=== PATIENT | female | born 1985 | race Caucasian/White ===

== ENCOUNTER 2017-12-10 10:09 | Day surgery (SDC) | payer OTHER ==
[2017-12-10 11:30] LABS: ADD MAN DIFF? NO
[2017-12-10 11:45] LABS: BASOPHIL # 0.1 10^3/ul (0.0-0.1); BASOPHILS % 0.8 % (0.0-2.0); EOSINOPHILS # 0.1 10^3/ul (0.0-0.5); EOSINOPHILS % 1.1 % (0.0-7.0); HEMATOCRIT 36.9 % (37.0-47.0); HEMOGLOBIN 11.8 g/dl (12.0-16.0); LYMPHOCYTES # 1.7 10^3/ul (0.8-2.9); LYMPHOCYTES % 19.2 % (15.0-51.0); MEAN CORPUSCULAR HEMOGLOBIN 24.4 pg (29.0-33.0); MEAN CORPUSCULAR VOLUME 76.2 fl (82.0-101.0); MEAN PLATELET VOLUME 10.4 fl (7.4-10.4); MONOCYTE # 0.7 10^3/ul (0.3-0.9); MONOCYTES % 7.9 % (0.0-11.0); NEUTROPHIL # 6.4 10^3/ul (1.6-7.5); NEUTROPHILS % 70.6 % (39.0-77.0); PLATELET COUNT 294 10^3/UL (140-415); RED BLOOD COUNT 4.84 10^6/ul (4.20-5.40); RED CELL DISTRIBUTION WIDTH 14.3 % (11.5-14.5)
[2017-12-10] MEDS ORDERED: hydrALAzine 20 MG INJ IV (12:00)
[2017-12-10] MEDS ORDERED: ONDANSETRON 4 MG INJ IV (12:00)
[2017-12-10] MEDS ORDERED: HYDROmorphONE (0.2 MG/ML) 10ML SYG IV (12:00)
[2017-12-10] MEDS ORDERED: MEPERIDINE 25 MG INJ IV (12:00)
[2017-12-10] MEDS ORDERED: LABETALOL HCL 20MG INJ IV (12:00)
[2017-12-10] MEDS ORDERED: PROCHLORPERAZINE 10 MG INJ IV (12:00)
[2017-12-10] MEDS ORDERED: FENTAnyl 50 MCG/ML VIAL IV (12:00)
[2017-12-10] MEDS ORDERED: OXYCODONE/ACETAMINOPHEN (5/325) TAB PO (12:00)
[2017-12-10] MEDS ORDERED: DIPHENHYDRAMINE 50 MG INJ IV (12:00)
[2017-12-10] MEDS ORDERED: PROPOFOL 20 ML ×2 (13:44)
[2017-12-10] MEDS ORDERED: MIDAZOLAM 1 MG/ML 2 ML INJ (13:44)
[2017-12-10] MEDS ORDERED: ONDANSETRON 4 MG INJ (13:44)
[2017-12-10] MEDS ORDERED: METOCLOPRAMIDE 10 MG INJ (13:44)
[2017-12-10] MEDS ORDERED: KETOROLAC 30 MG INJ (13:44)
[2017-12-10] MEDS ORDERED: FENTAnyl 50 MCG/ML VIAL (13:44)
[2017-12-10] MEDS ORDERED: LIDOCAINE 2% (SDV) 5 ML INJ (13:44)
[2017-12-10] MEDS ORDERED: FAMOTIDINE 20 MG INJ (13:44)
[2017-12-10] MEDS ORDERED: PHENYLephrine (100 MCG/ML) 5ML SYG (13:45)
== END 2017-12-10 14:20 | disposition home or self-care (01) ==
LOC: SDS 10:09
DX: N93.9 Abnormal uterine and vaginal bleeding, unspecified (principal); E11.9 Type 2 diabetes mellitus without complications; E78.5 Hyperlipidemia, unspecified; E66.01 Morbid (severe) obesity due to excess calories; Z68.39 Body mass index [BMI] 39.0-39.9, adult
CPT/HCPCS: 58120; 82962; 85025; 88305

== ENCOUNTER 2018-12-09 08:23 | Day surgery (SDC) | payer OTHER ==
[~2018-12-09 08:23] MED LIST: LIDOCAINE 2% (SDV) 5 ML INJ
[2018-12-09] MEDS ORDERED: FENTAnyl 50 MCG/ML VIAL (11:13)
[2018-12-09] MEDS ORDERED: DEXAMETHASONE 4 MG/ML 5 ML INJ (11:38)
[2018-12-09] MEDS ORDERED: PROPOFOL 100 ML (11:38)
[2018-12-09] MEDS ORDERED: ONDANSETRON 4 MG INJ (11:38)
[2018-12-09] MEDS ORDERED: KETOROLAC 30 MG INJ (11:59)
[2018-12-09] MEDS ORDERED: HYDROmorphONE 1 MG/5 ML IV SYRINGE IV ×2 (12:23→12:30)
[2018-12-09] MEDS: HYDROmorphONE 1 MG/5 ML IV SYRINGE IV (12:25)
[2018-12-09] MEDS ORDERED: EPHEDrine SULFATE 50 MG/5 ML SYG IV (12:30)
[2018-12-09] MEDS ORDERED: ALBUTEROL 0.083% (NEB) 2.5 MG/3 ML AMP HHN (12:30)
[2018-12-09] MEDS ORDERED: OXYCODONE/ACETAMINOPHEN (5/325) TAB PO ×2 (12:30)
[2018-12-09] MEDS ORDERED: MEPERIDINE 25 MG INJ IV (12:30)
[2018-12-09] MEDS ORDERED: METOCLOPRAMIDE 10 MG INJ IV (12:30)
[2018-12-09] MEDS ORDERED: hydrALAzine 20 MG INJ IV (12:30)
[2018-12-09] MEDS ORDERED: LABETALOL HCL 20MG INJ IV (12:30)
[2018-12-09] MEDS ORDERED: DIPHENHYDRAMINE 50 MG INJ IV (12:30)
[2018-12-09] MEDS ORDERED: FENTAnyl 50 MCG/ML VIAL IV ×3 (12:30)
[2018-12-09] MEDS ORDERED: KETOROLAC 30 MG INJ IV (12:30)
[2018-12-09] MEDS ORDERED: ONDANSETRON 4 MG INJ IV (12:30)
== END 2018-12-09 14:15 | disposition home or self-care (01) ==
LOC: SDS 08:23
DX: N93.9 Abnormal uterine and vaginal bleeding, unspecified (principal); E11.9 Type 2 diabetes mellitus without complications
CPT/HCPCS: 58120; 82962; 86850; 86900; 86901; 88305

== ENCOUNTER 2018-12-24 19:47 | Emergency (ER) | payer OTHER ==
[2018-12-24] MEDS: HYDROCODONE/APAP (5/325) TAB PO (23:51)
[2018-12-24 23:58] LABS: ADD MAN DIFF? NO
[2018-12-24 23:59] LABS: WHITE BLOOD COUNT 12.7 10^3/ul (4.8-10.8)
[2018-12-24 23:59] LABS: BASOPHIL # 0.1 10^3/ul (0.0-0.1); BASOPHILS % 0.6 % (0.0-2.0); EOSINOPHILS # 0.3 10^3/ul (0.0-0.5); EOSINOPHILS % 2.2 % (0.0-7.0); HEMATOCRIT 35.9 % (37.0-47.0); HEMOGLOBIN 11.2 g/dl (12.0-16.0); LYMPHOCYTES # 2.8 10^3/ul (0.8-2.9); MEAN CORPUSCULAR HEMOGLOBIN 23.1 pg (29.0-33.0); MEAN CORPUSCULAR HGB CONC 31.2 g/dl (32.0-37.0); MEAN CORPUSCULAR VOLUME 74.2 fl (82.0-101.0); MEAN PLATELET VOLUME 10.4 fl (7.4-10.4); MONOCYTE # 0.9 10^3/ul (0.3-0.9); MONOCYTES % 7.1 % (0.0-11.0); NEUTROPHIL # 8.6 10^3/ul (1.6-7.5); NEUTROPHILS % 67.3 % (39.0-77.0); PLATELET COUNT 308 10^3/UL (140-415); RED BLOOD COUNT 4.84 10^6/ul (4.20-5.40); RED CELL DISTRIBUTION WIDTH 14.1 % (11.5-14.5)
[2018-12-25 00:09] LABS: ADD UMIC YES; UR ASCORBIC ACID NEGATIVE (NEGATIVE); UR BACTERIA FEW /HPF (NONE SEEN); UR BILIRUBIN (Dip) NEGATIVE (NEGATIVE); UR BLOOD (Dip) 3+ mg/dL (NEGATIVE); UR CLARITY SLIGHTLY CLOUDY (CLEAR); UR COLOR YELLOW (YELLOW); UR GLUCOSE (Dip) NEGATIVE (NEGATIVE); UR KETONES (Dip) NEGATIVE (NEGATIVE); UR LEUKOCYTE ESTERASE (Dip) NEGATIVE Leu/ul (NEGATIVE); UR NITRITE (Dip) NEGATIVE (NEGATIVE); UR RBC 0 /HPF (0-5); UR SPECIFIC GRAVITY (Dip) 1.008 (1.003-1.030); UR SQUAMOUS EPITHELIAL CELL FEW /HPF (FEW); UR TOTAL PROTEIN (Dip) NEGATIVE (NEGATIVE); UR UROBILINOGEN (Dip) NEGATIVE (NEGATIVE); UR WBC 1 /HPF (0-5)
[2018-12-25 00:18] LABS: ANION GAP 13 (5-13); BLOOD UREA NITROGEN 9 mg/dl (7-20); CALCIUM 10.2 mg/dl (8.4-10.2); CARBON DIOXIDE 24 mmol/L (21-31); CHLORIDE 100 mmol/L (97-110); CREATININE 0.38 mg/dl (0.44-1.00); Estimated GFR > 60 mL/min (>60); GLUCOSE 180 mg/dl (70-220); POTASSIUM 3.7 mmol/L (3.5-5.1); SODIUM 137 mmol/L (135-144)
== END 2018-12-25 02:18 | disposition home or self-care (01) ==
LOC: FTE 19:47
DX: R10.2 Pelvic and perineal pain (principal); Z79.4 Long term (current) use of insulin
CPT/HCPCS: 36415; 76830; 76856; 80048; 81001; 81025; 85025; 99284-25